=== PATIENT | female | born 1970 | race Caucasian/White ===

== ENCOUNTER 2021-03-24 10:20 | Outpatient (REF) | payer OTHER, SELFPAY ==
[2021-03-24 12:26] LABS: IDNOW Serial# 16C4AD1C
[2021-03-24 12:27] LABS: COVID-19 Test Positive (Negative)
== END 2021-03-24 10:21 | disposition home or self-care (01) ==
LOC: HO.LAB 10:20
PROVIDERS: Visit Provider Internal Medicine
DX: Z20.822 Contact with and (suspected) exposure to COVID-19 (principal)
CPT/HCPCS: 36415; 87635; C9803